=== PATIENT | female | born 2000 | race Caucasian/White ===

== ENCOUNTER 2021-09-27 23:36 | Outpatient (CLI) | payer SELFPAY | END 2021-09-27 23:37 | disposition EMS.NT | LOC: EMS 23:36 | DX: S50.311A Abrasion of right elbow, initial encounter (principal); V87.8XXA Person injured in other specified noncollision transport accidents involving motor vehicle (traffic), initial encounter; Y93.89 Activity, other specified; Y92.410 Unspecified street and highway as the place of occurrence of the external cause ==